=== PATIENT | male | born 1980 | race Caucasian/White ===

== ENCOUNTER 2022-09-08 15:31 | Outpatient (CLI) | payer OTHER, SELFPAY ==
[2022-09-08 14:30] LABS: Cholesterol* 278 mg/dL (90-199)
[2022-09-08 14:31] LABS: Glucose* 87 mg/dL (60-115); HDL Cholesterol* 49 mg/dL (>=40); LDL Cholesterol Calculated 181 mg/dL (<100); Triglycerides* 238 mg/dL (40-149)
== END 2022-09-08 15:32 | disposition home or self-care (01) ==
PROVIDERS: PCP Emergency Medicine; Visit Provider Emergency Medicine
DX: E78.5 Hyperlipidemia, unspecified (principal); Z13.1 Encounter for screening for diabetes mellitus; Z13.29 Encounter for screening for other suspected endocrine disorder
CPT/HCPCS: 80061; 82947; 84443